=== PATIENT | female | born 1995 | race Caucasian/White ===

== ENCOUNTER 2018-12-02 17:36 | Outpatient (CLI) | payer MEDICAID ==
[~2018-12-02] VITALS: Ht 157.5 cm; Wt 51.8 kg
[2018-12-02 17:48] VITALS: BP 116/70; PULSE 96; RESP 19; Ht 157.5 cm; Wt 51.8 kg
--- NOTE | 2018-12-02 22:18 | PN ---
Triage Information Date/Time December 02, 2018 Reason for visit: Uterine contractions Weeks of Gestation 38w 1d /Para 1/0 Diabetes: none Hypertention: none Additional information Pt had intercourse and then started leatha but appears very comfortable and ambulates easily. PMHx: none. PSHx: none. NKDA Objective Vital Signs Date Temp Pulse Resp B/P (MAP) Pulse Ox O2 O2 Flow FiO2 Time Delivery Rate 12/02/18 99.1 96 19 116/70 Room Air 17:48 (85) Heart Rate: 130's Heart Rate Comments Accels to 170 BPM. No decels. Contractions: 6-10 Minutes Apart (Occasionally closer at q 2-3 minutes) Exam Close/thick/high, per the RN Results/Medications Results 24 hrs Laboratory Tests Test 12/02/18 19:19 Urine Color YELLOW Urine Clarity SLIGHTLY CLOUDY A Urine pH 7.0 Urine Specific [place] 1.018 Urine Ketones NEGATIVE Urine Nitrite NEGATIVE Urine Bilirubin NEGATIVE Urine Urobilinogen NEGATIVE Urine Leukocyte Esterase NEGATIVE Urine Microscopic RBC 1 Urine Microscopic WBC 3 Urine Squamous Epithelial Cells FEW Urine Bacteria FEW A Urine Mucus FEW A Urine Hemoglobin NEGATIVE Urine Glucose NEGATIVE Urine Total Protein NEGATIVE Imaging Results BPP 8/8 with an RAISA of 14.4 cm. VTX. Disposition: Discharge Assessment/Plan A: IUP at 38w 1d. False labor. P: No change of the cx after walking for 90 minutes. D/c home. Labor precautions reviewed. Next appt at the clinic is 12/08. RAQUEL JUAREZ MD Dec 02, 2018 22:18
--- NOTE | 2018-12-02 23:33 | TRIAGE ---
OB Triage Datetime Report Generated by CPN: 12/02/2018 23:33 Datetime: 12/02/2018 22:09 Stage of : OB Triage Datetime: 12/02/2018 21:45 Labor Evaluation Frequency: 1-6 Monitor Mode: External Duration (sec)2399: 50-120 Quality: Strong Pattern: Normal: <= 5 Contractions in 10 Minutes Resting Tone [place]: Relaxed Heart Rate FHR Baseline Rate: 145 Monitor Mode: External US Variability: Moderate 6-25 bpm Accelerations: 15X15 Decelerations: None Category: Category I Datetime: 12/02/2018 20:55 Vaginal Exam Dilatation (cms): 0.0 Effacement (%): 0 Station: -2 Exam By: C KENRICK GALINDO Datetime: 12/02/2018 19:27 Stage of : OB Triage Labor Evaluation Frequency: 1-5.5 Monitor Mode: External Duration (sec)2399: 50-90 Quality: Strong Pattern: Normal: <= 5 Contractions in 10 Minutes Resting Tone [place]: Relaxed Heart Rate FHR Baseline Rate: 145 Monitor Mode: External US Variability: Moderate 6-25 bpm Accelerations: 15X15 Decelerations: None Category: Category I Datetime: 12/02/2018 19:00 Stage of : OB Triage Labor Evaluation Frequency: 1-7 Monitor Mode: External Duration (sec)2399: 40-100 Quality: Strong Pattern: Normal: <= 5 Contractions in 10 Minutes Resting Tone [place]: Relaxed Contraction Comments: UTERINE IRRITABILITY NOTED Heart Rate FHR Baseline Rate: 145 Monitor Mode: External US Variability: Moderate 6-25 bpm Accelerations: 15X15 Decelerations: None Category: Category I Datetime: 12/02/2018 17:56 Vaginal Exam Dilatation (cms): 0.0 Effacement (%): 0 Station: -3 Exam By: A SYEDA Datetime: 12/02/2018 17:55 EGA: 38.1 Datetime: 12/02/2018 17:53 Assessment Type: Triage Maternal Assessment Level of Consciousness: Keenly Alert, Responsive DTR's/Clonus: DTRs 2+; No Clonus Headache: Denies Blurred Vision: No Respiratory Effort: Unlabored; Regular Rhythm; Equal Expansion Breath Sounds, Left: Clear and Equal Breath Sounds, Right: Clear and Equal Nausea/Vomiting: Denies RUQ Epigastric Pain: Denies Lower Extremities Edema: None Degree: None Upper Extremities Edema: None Degree: None Facial Edema: None Fall Risk Assessment History of Falling: (0) No Secondary Diagnosis: (0) No Ambulatory Aid: (0) Bedrest/Nurse Assist IV Therapy: (0) No Gait: (0) Normal/Bedrest/Immobile Mental Status: (0) Oriented to Own Ability Fall Score: 0 Fall Risk Score Definition: No Risk: No action required Labor Evaluation Frequency: OCCAS Monitor Mode: External Duration (sec)2399: 50-70 Quality: Mild Pattern: Normal: <= 5 Contractions in 10 Minutes Resting Tone [place]: Relaxed Heart Rate FHR Baseline Rate: 145 Monitor Mode: External US Variability: Moderate 6-25 bpm Accelerations: 15X15 Decelerations: None Category: Category I Datetime: 12/02/2018 17:52 EGA: 38.1 Datetime: 12/02/2018 17:51 Time of Arrival: 12/02/2018 17:22 Arrived By: Ambulatory Arrived From: Home Chief Complaint: UC'S Movement: Present Contractions: Irregular Time Contractions Began: 12/01/2018 21:00 Rupture of Membranes: Denies Vaginal Bleeding: None Vaginal Discharge: Denies Recent Sexual Intercouse: Yes Abdominal Trauma: Not Applicable Patient Complaints: Contractions; Cramping; Other Time Provider Notified: 12/02/2018 19:25 Provider Notified: DR. MAGALLANES Initial Plan: CRISTINE RODRIGUEZ
[2018-12-12] MEDS ORDERED: PNV11TAB PO (03:12)
== END 2018-12-02 22:18 | disposition home or self-care (01) ==
LOC: OBT 17:36 → L-D 17:37 → OBT 22:18
PROVIDERS: ATTEND Obstetrics & Gynecology
DX: O47.1 False labor at or after 37 completed weeks of gestation (principal); Z3A.38 38 weeks gestation of pregnancy
CPT/HCPCS: 76818; 81001; Z7500; 81003; G0463